=== PATIENT | male | born 1965 | race Asian ===

== ENCOUNTER → 2016-12-19 | Outpatient (REF) | payer OTHER | LOC: M LAB REF 15:14 | PROVIDERS: ATTEND Physician Assistant | DX: J06.9 Acute upper respiratory infection, unspecified (principal) ==

== ENCOUNTER → 2018-07-23 | Outpatient (CLI) | payer OTHER ==
[2018-07-23 19:46] LABS: HEMOGLOBIN 15.1 g/dl (13.5-17.5); MEAN CORPUSCULAR HEMOGLOBIN 31.3 pg (27.0-33.0); MEAN CORPUSCULAR HGB CONC 33.6 g/dl (32.0-36.5); MEAN CORPUSCULAR VOLUME 93.2 fl (80.0-96.0); PLATELET COUNT, AUTOMATED 292 10^3/uL (150-450); RED BLOOD COUNT 4.83 10^6/uL (4.30-6.10); WHITE BLOOD COUNT 8.8 10^3/uL (4.0-10.0)
[2018-07-23 20:17] LABS: ALBUMIN 4.3 GM/DL (3.2-5.2); ALBUMIN/GLOBULIN RATIO 1.34 (1.00-1.93); ALKALINE PHOSPHATASE 49 U/L (45-117); ALT/SGPT 23 U/L (12-78); ANION GAP 13 MEQ/L (8-16); AST/SGOT 10 U/L (7-37); BILIRUBIN,TOTAL 0.6 MG/DL (0.2-1.0); BLOOD UREA NITROGEN 18 MG/DL (7-18); CALCIUM LEVEL 9.3 MG/DL (8.5-10.1); CARBON DIOXIDE LEVEL 27 MEQ/L (21-32); CHLORIDE LEVEL 102 MEQ/L (98-107); CHOLESTEROL LEVEL 161 MG/DL (<200); CHOLESTEROL RISK RATIO 3.156 (<5); CREATININE FOR GFR 1.18 MG/DL (0.70-1.30); GLOMERULAR FILTRATION RATE > 60.0 (>56); GLUCOSE, FASTING 98 MG/DL (70-100); HDL CHOLESTEROL 51 MG/DL (>40); LDL CHOLESTEROL 82 MG/DL (<100); NON-HDL-C 110 MG/DL; POTASSIUM SERUM 4.4 MEQ/L (3.5-5.1); PSA SCREENING 1.19 NG/ML (< 4.0); SODIUM LEVEL 142 MEQ/L (136-145); TOTAL PROTEIN 7.5 GM/DL (6.4-8.2); TRIGLYCERIDES LEVEL 140 MG/DL (<150)
== END ==
LOC: M WUC 15:46
DX: R22.1 Localized swelling, mass and lump, neck (principal); Z12.5 Encounter for screening for malignant neoplasm of prostate; M19.071 Primary osteoarthritis, right ankle and foot
CPT/HCPCS: 84443

== ENCOUNTER → 2019-01-01 | Outpatient (CLI) | payer OTHER ==
--- NOTE | 2019-01-01 20:18 | ECGEPIP ---
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
== END ==
LOC: M EKG 17:51
PROVIDERS: ATTEND Anesthesiology
DX: Z01.818 Encounter for other preprocedural examination (principal)

== ENCOUNTER 2019-01-06 09:14 | Day surgery (SDC) | payer OTHER ==
[~2019-01-06] VITALS: Ht 167.6 cm; Wt 86.2 kg
[2019-01-06] MEDS ORDERED: PROPOFOL 200 MG/20 ML VIAL As Ordered ONE (10:09)
[2019-01-06] MEDS ORDERED: ROCURONIUM BROMIDE 50 MG/5 ML VIAL As Ordered ONE (10:09)
[2019-01-06] MEDS ORDERED: MIDAZOLAM INJ 2 MG/2 ML VIAL (J2250) As Ordered ONE ×2 (10:10→12:13)
[2019-01-06] MEDS ORDERED: dexameTHASONE 4 MG/ML 1ML VIAL (J1100) As Ordered ONE (10:10)
[2019-01-06] MEDS ORDERED: ONDANSETRON 4MG/2ML VIAL (J2405) As Ordered ONE (10:10)
[2019-01-06] MEDS ORDERED: LIDOCAINE 2% INJ 100 MG/5 ML SDV (FOR ANES.) As Ordered ONE (10:10)
[2019-01-06] MEDS ORDERED: fentaNYL 100 MCG/2 ML INJECTION (J3010) As Ordered ONE (10:11)
[2019-01-06] MEDS ORDERED: LIDOCAINE W/EPINEPHRINE 1% 20ML VIAL As Ordered ONE (10:50)
[2019-01-06] MEDS ORDERED: BACITRACIN OINT 30GM As Ordered ONE (10:50)
[2019-01-06] MEDS ORDERED: KETOROLAC 60 MG/2 ML VIAL (J1885) As Ordered ONE (12:11)
[2019-01-06] MEDS ORDERED: NORCO, ANEXSIA 5/325MG TABLET (HYDROcodone/ACETAMINOPHEN) PO PRN (13:00)
[2019-01-06] MEDS ORDERED: ACETAMINOPH W/CODEINE #3 TAB UD PO PRN (13:00)
[2019-01-06] MEDS ORDERED: ONDANSETRON 4MG/2ML VIAL (J2405) IV PRN (13:00)
[2019-01-06] MEDS ORDERED: LR 1,000 ML IV SCH ×2 (13:00)
[2019-01-06 13:50] VITALS: BP 126/85
--- NOTE | 2019-01-07 10:27 | RO ---
DATE OF PROCEDURE: 01/06/2019 PREOPERATIVE DIAGNOSIS: Mass right neck. POSTOPERATIVE DIAGNOSIS: Mass right neck. PROCEDURE: Excision of mass right neck. SURGEON: Aryna Luna MD IGNITION MECHANIC: DANIELE Sahni ANESTHESIA: FINDINGS/DESCRIPTION OF PROCEDURE: There is a mass on the right neck, which is lying on top of the sternocleidomastoid muscle attached to the inferior part of the parotid gland. The external jugular vein was attached anteriorly and greater auricular nerve medially, and the spinal accessory nerve posteriorly. An incision was made dividing skin and subcutaneous tissues. I dissected the skin off the mass. I dissected ___the mass from the parotid superiorly from the sternocleidomastoid muscle and the vessels and nerves as identified. Bleeding was controlled with cautery. The mass was delivered from wound. Any bleeding seen was cauterized. A 1/4-inch Blue drain was placed in the wound, and the wound closed with #4-0 Vicryl and #5-0 nylon. Patient transferred to the recovery room in excellent condition. Less than 5 mL estimated blood loss. Stephen Hare assisted by holding retractors, cutting some of the tissue with cautery, and suturing the wound. Edited 01/07/2019 ashely MORTON
== END 2019-01-06 14:04 | disposition home or self-care (01) ==
LOC: M SDC 09:14
PROVIDERS: ATTEND Otolaryngology
DX: D17.0 Benign lipomatous neoplasm of skin and subcutaneous tissue of head, face and neck (principal); Z87.891 Personal history of nicotine dependence
CPT/HCPCS: 11426; 88307; J1100; J1885; J2250; J2405; J3010

== ENCOUNTER → 2020-08-04 | Outpatient (REF) | payer OTHER ==
[2020-08-04 17:28] LABS: HEMATOCRIT 46.9 % (42.0-52.0); HEMOGLOBIN 15.2 g/dl (13.5-17.5); MEAN CORPUSCULAR HEMOGLOBIN 30.4 pg (27.0-33.0); MEAN CORPUSCULAR HGB CONC 32.4 g/dl (32.0-36.5); MEAN CORPUSCULAR VOLUME 93.8 fl (80.0-96.0); PLATELET COUNT, AUTOMATED 288 10^3/uL (150-450)
[2020-08-04 18:12] LABS: ALBUMIN 3.9 GM/DL (3.2-5.2); ALT/SGPT 17 U/L (12-78); BILIRUBIN,TOTAL 0.8 MG/DL (0.2-1.0); BLOOD UREA NITROGEN 13 MG/DL (7-18); CALCIUM LEVEL 9.3 MG/DL (8.5-10.1); CARBON DIOXIDE LEVEL 31 MEQ/L (21-32); CHLORIDE LEVEL 103 MEQ/L (98-107); CHOLESTEROL LEVEL 183 MG/DL (<200); CHOLESTEROL RISK RATIO 3.155 (<5); CREATININE FOR GFR 1.14 MG/DL (0.70-1.30); GLOMERULAR FILTRATION RATE > 60.0 (>56); GLUCOSE, FASTING 90 MG/DL (70-100); HDL CHOLESTEROL 58 MG/DL (>40); LDL CHOLESTEROL 99 MG/DL (<100); NON-HDL-C 125 MG/DL; POTASSIUM SERUM 4.4 MEQ/L (3.5-5.1); SODIUM LEVEL 137 MEQ/L (136-145); TOTAL PROTEIN 7.2 GM/DL (6.4-8.2); TRIGLYCERIDES LEVEL 130 MG/DL (<150)
== END ==
LOC: M SFHCPLAZ 15:00
PROVIDERS: ATTEND Nurse Practitioner Adult Health
DX: Z00.00 Encounter for general adult medical examination without abnormal findings (principal); Z12.5 Encounter for screening for malignant neoplasm of prostate; R22.1 Localized swelling, mass and lump, neck

== ENCOUNTER → 2020-10-05 | Outpatient (CLI) | payer SELFPAY | LOC: M LABCAHC 15:15 | PROVIDERS: ATTEND Pediatrics | DX: Z11.59 Encounter for screening for other viral diseases (principal) ==